=== PATIENT | male | born 1985 ===

== ENCOUNTER 2018-03-28 21:18 | Emergency (ER) | payer OTHER ==
[~2018-03-28] VITALS: Ht 170.2 cm; Wt 86.2 kg
[2018-03-28 22:00] VITALS: BP 128/78; TEMP 98.3
== END 2018-03-28 22:00 | disposition home or self-care (01) ==
LOC: ED 21:18
PROC: 0HQGXZZ Repair Left Hand Skin, External Approach (ICD-10-PCS; principal; 2018-03-28)
DX: S61.412A Laceration without foreign body of left hand, initial encounter (principal); W45.8XXA Other foreign body or object entering through skin, initial encounter
CPT/HCPCS: 90471; 90715; 99282